=== PATIENT | male | born 1955 | race Caucasian/White ===

== ENCOUNTER 2016-08-31 11:41 | Emergency (ER) | payer OTHER ==
[~2016-08-31] VITALS: Ht 175.3 cm; Wt 102.5 kg
[2016-08-31 11:43] VITALS: BP 187/89; PULSE 78; RESP 20; TEMP 97.8; O2SAT 97
[2016-08-31] MEDS ORDERED: METF500T PO (12:17)
[2016-08-31] MEDS ORDERED: METF500 PO (12:17)
[2016-08-31] MEDS ORDERED: ATOR10TA15 PO (12:17)
[2016-08-31] MEDS ORDERED: AMLO10TA2 PO (12:17)
[2016-08-31] MEDS ORDERED: METO-309 PO (12:25)
--- NOTE | 2016-08-31 12:43 | PD ---
HPI . Low back pain Chief Complaint: Back/ Neck Pain or Injury Time Seen by Provider: 12:35 Travel History International Travel<30 days: No Contact w/Intl Traveler<30days: No Traveled to known affect area: No History of Present Illness HPI Patient presents with about a 2 week history of low back pain. It is getting increasingly worse. He has been seen by his primary care provider who prescribed a pain pill and a muscle relaxant. He has been taking these but states that he is getting worse rather than better. Pain is exacerbated by movement. This but factors. States that he has now developed numbness in his right thigh. He also states that he cannot stand up straight. He denies any bowel or bladder incontinence. He denies any fever. He states that his pain is 10/10. It is described as a sharp, shooting pain. PFSH Past Medical History Hx Anticoagulant Therapy: No Cardiovascular Problems: Yes High Cholesterol: Yes Chemotherapy: No Cerebrovascular Accident: Yes Diabetes: Yes Patient Takes Glucophage: Yes Hypertension: Yes Respiratory: No Tetanus Vaccination: > 5 Years Influenza Vaccination: No Past Surgical History Coronary Artery Bypass Graft: Yes (QUADRUPLE) Social History Alcohol Use: No Tobacco Use: No Substance Use: No Allergies-Medications (Allergen,Severity, Reaction): Coded Allergies: No Known Allergies (Unverified , 08/31/16) Reported Meds & Prescriptions Reported Meds & Active Scripts Active Reported Lopressor (Metoprolol Tartrate) 50 Mg Tab 25 Mg PO DAILY Atorvastatin (Atorvastatin Calcium) 10 Mg Tab 10 Mg PO HS Amlodipine (Amlodipine Besylate) 10 Mg Tab 10 Mg PO DAILY Glucophage (Metformin HCl) 500 Mg Tab 500 Mg PO DAILY With a meal Metformin (Metformin HCl) 500 Mg Tab 500 Mg PO BIDPC With meals Review of Systems Except as stated in HPI: all other systems reviewed are Neg General / Constitutional: No: Fever, Chills Gastrointestinal: No: Abdominal Pain Genitourinary: No: Incontinence Musculoskeletal: Positive: Myalgias, No: Weakness Neurologic: No: Weakness, Paresthesia, Incontinence Physical Exam Narrative GENERAL: Awake and alert and in no acute distress. SKIN: Warm and dry. HEAD: Atraumatic. Normocephalic. EYES: Pupils equal and round. Extraocular movements are intact. ENT: No nasal bleeding or discharge. Mucous membranes pink and moist. NECK: Trachea midline. Neck is supple. CARDIOVASCULAR: Regular rate and rhythm. RESPIRATORY: No accessory muscle use. MUSCULOSKELETAL: No obvious deformities. No edema. No point tenderness to percussion of the lumbar spine. Straight leg raise bilaterally causes right groin pain. NEUROLOGICAL: Awake and alert. No obvious cranial nerve deficits. Motor grossly within normal limits. Normal speech. PSYCHIATRIC: Appropriate mood and affect; insight and judgment normal. Data Data Last Documented VS Vital Signs Date Time Temp Pulse Resp B/P Pulse Ox O2 Delivery O2 Flow Rate FiO2 08/31/16 13:56 98.5 77 16 156/93 96 08/31/16 11:43 Room Air Orders Mri L Spine W/O Contrast (08/31/16 12:35) ^ Saline Lock (08/31/16 12:35) Morphine Inj (Morphine Inj) (08/31/16 12:45) Lorazepam Inj (Ativan Inj) (08/31/16 12:45) Dexamethasone Inj (Decadron Inj) (08/31/16 12:45) MDM Medical Decision Making Medical Screen Exam Complete: Yes Emergency Medical Condition: Yes Differential Diagnosis Differential diagnosis includes but is not limited to muscular low back pain, DDD, spinal stenosis, epidural abscess, sciatica, kidney infection or stone. Narrative Course Patient presents with low back pain which is getting progressively worse. He has now developed symptoms of sciatica. I have ordered IV morphine, Ativan and Decadron. MRI of his back is pending. Last Impressions Lumbar Spine MRI 08/31/16 1235 Signed Impressions: Service Date/Time: Wednesday, August 31, 2016 13:28 - CONCLUSION: Based posterior disc protrusion at the level of L4/L5 which minimally effaces the adjacent thecal sac and causes moderate bilateral neural foraminal narrowing.. Isha Gottlieb MD Diagnosis Primary Impression: Sciatica Qualified Code: M54.31 - Sciatica of right side Referrals: Krishna Bonilla MD Patient Instructions: General Instructions, Narcotic given in the ED Med/Other Pt SpecificInfo: Prescription(s) given Scripts Cyclobenzaprine (Flexeril)10 Mg Tab10 Mg PO TID #30 TAB Ref 0 Prov:Jodee Adame MD 08/31/16 Hydrocodone-Acetaminophen ([place])5-325 mg Tab1 Tab PO Q4H PRN (PAIN) #12 TAB Ref 0 Prov:Jodee Adame MD 08/31/16 Prednisone (48) 10 mg tab Dose Pack 10 Mg Dspk10 Mg PO DIRECTED #1 DSPK Ref 0 Prov:Jodee Adame MD 08/31/16 Disposition: 01 DISCHARGE HOME Condition: Stable Jodee Adame MD Aug 31, 2016 12:43
[2016-08-31] MEDS ORDERED: MORPHINE SULFATE 8 MG/ML INJ IV PUSH ONE (12:45)
[2016-08-31] MEDS ORDERED: DEXAMETHASONE SOD PHOS 20 MG/5 ML VIAL IV PUSH ONE (12:45)
[2016-08-31] MEDS ORDERED: LORazepam 2 MG/ML VIAL IV PUSH ONE (12:45)
[2016-08-31 13:48] VITALS: BP 175/91; PULSE 75; RESP 18; O2SAT 97
[2016-08-31 13:56] VITALS: BP 156/93; PULSE 77; RESP 16; TEMP 98.5; O2SAT 96
--- NOTE | 2016-08-31 14:42 | RADRPT ---
EXAM DATE/TIME: 08/31/2016 13:28 [facility] COMPARISON: No previous studies available for comparison. INDICATIONS : Low back pain with difficulty ambulating. MEDICAL HISTORY : Hypertension. Diabetes mellitus type 2. SURGICAL HISTORY : CABG ENCOUNTER: Initial ACUITY: 1 day PAIN SCORE: 0/10 LOCATION: [facility] TECHNIQUE: Multiplanar multisequence MRI of the lumbar spine was performed without contrast. FINDINGS: The most caudal appearing lumbar vertebra is numbered as L5. VERTEBRAE: Homogeneous signal. Normal alignment. CONUS: Normal level and configuration. T12-L1: The thecal sac has a normal diameter. No evidence of disc bulge or protrusion. The neural foramina are patent bilaterally. L1-L2: The thecal sac has a normal diameter. No evidence of disc bulge or protrusion. The neural foramina are patent bilaterally. L2-L3: The thecal sac has a normal diameter. No evidence of disc bulge or protrusion. The neural foramina are patent bilaterally. L3-L4: There is a small broad-based disc bulge present. No significant narrowing of the spinal canal or neur al foramina.. L4-L5: Disc desiccation with disc space narrowing and a small broad-based disc protrusion which minimally ef faces the adjacent thecal sac. Mild bilateral facet hypertrophy. The disc extends to the level of the neural foramina causing moderate bilateral neural foraminal narrowing. L5-S1: The thecal sac has a normal diameter. No evidence of disc bulge or protrusion. The neural foramina are patent bilaterally. CONCLUSION: Based posterior disc protrusion at the level of L4/L5 which minimally effaces the adjacent thecal sac and causes moderate bilateral neural foraminal narrowing.. Isha Gottlieb MD on August 31, 2016 at 14:39 Board Certified Radiologist. This report was verified electronically.
[2016-08-31 14:51] VITALS: BP 169/88; PULSE 76; RESP 16; O2SAT 97
[2016-08-31] MEDS ORDERED: PRED10PA2 PO (14:54)
[2016-08-31] MEDS ORDERED: NORC5TAB PO (14:54)
[2016-08-31] MEDS ORDERED: CYCL1TAB29 PO (14:54)
== END 2016-08-31 15:18 | disposition home or self-care (01) ==
LOC: NEPD 11:41
DX: M54.31 Sciatica, right side (principal); R20.0 Anesthesia of skin; M79.1 Myalgia; E78.00 Pure hypercholesterolemia, unspecified; E11.9 Type 2 diabetes mellitus without complications; I10 Essential (primary) hypertension; Z86.73 Personal history of transient ischemic attack (TIA), and cerebral infarction without residual deficits
CPT/HCPCS: 72148; 96374; 96375; 99283; J1100; J2060; J2270